=== PATIENT | male | born 1965 | race Caucasian/White ===

== ENCOUNTER 2019-04-02 10:03 | Day surgery (SDC) | payer BC ==
[2019-04-02] MEDS ORDERED: LIDOCAINE 2% MDV (20MG/ML) 20ML VIAL IV ONE (10:04)
[2019-04-02] MEDS ORDERED: FENTANYL PF 100MCG/2ML VIAL IV ONE (10:04)
[2019-04-02] MEDS ORDERED: PROPOFOL 10 MG/ML VIAL IV ONE (10:04)
--- NOTE | 2019-04-03 11:00 | Operative Note ---
OPERATION: ESOPHAGOGASTRODUODENOSCOPY with multiple biopsies. INDICATION: Recurring dysphagia. The patient reports a long-standing history of pyrosis in the past which clinically improved after significant elective weight loss. He experiences dysphagia intermittently now to dry solid foods pointing to the lower chest region. He denies any liquid dysphagia. He denies any oropharyngeal dysphagia. He denies pyrosis currently. Upper endoscopy is performed at this time for further evaluation. ANESTHESIA: Intravenous sedation was administered by the department of anesthesiology and included Diprivan titrated to effect. PROCEDURE: Following informed consent from this alert individual, including a discussion of the risks and benefits of the procedure and an opportunity for the patient to ask questions, the patient was in the left lateral decubitus position. The Olympus [id number] video endoscope was inserted into the esophagus without resistance. The proximal esophagus had a normal appearance with normal folds and distensibility. The mid esophagus likewise was free from changes. The distal esophageal segment demonstrated a 1.5 cm ulceration extending from the squamocolumnar junction proximally with edema and erythema circumferentially at the GE junction as well. Biopsies were taken. There was a small 2 cm hiatal hernia encountered which was free from mucosal changes. The subdiaphragmatic stomach was then entered. The proximal stomach was endoscopically unremarkable; however, the antrum of the stomach demonstrated linear streak erythema. The pylorus was patent. The duodenal bulb, sweep, and descending duodenum were then examined in a serial fashion and there were focal areas of duodenitis predominantly in the duodenal bulb. The second portion of the duodenum was normal. The endoscope was then drawn back into the body of the stomach where retroflexion accomplished following air insufflation again revealed a small hiatal hernia. The endoscope was then straightened. Biopsies were taken from the antrum of the stomach and from the proximal stomach as well. A second set of biopsies was taken from the area of ulceration as mentioned above. The endoscope was then withdrawn back through a normal mid and proximal esophagus and removed from the patient. He tolerated the procedure well and was returned to the recovery area in stable condition. IMPRESSION: 1. A 1.5 cm distal esophageal ulceration. Biopsies taken with esophagitis at the GE junction and a 2 cm hiatal hernia noted. 2. Linear antral gastritis. Gastric biopsies taken. 3. Mild duodenitis. RECOMMENDATION: Further recommendations will be forthcoming pending results of pathology obtained today. The patient will be started on omeprazole 20 mg twice daily and be arranged to have a recheck endoscopy in 8-10 weeks to assess healing and also perhaps for esophageal dilatation, as the tissue today was extremely friable and ulcerated. Followup will also be with primary care, Vanita Gallego. As always, thank you for allowing me to participate in the care of your patient. VICTOR HUGO
== END 2019-04-02 13:05 | disposition home or self-care (01) ==
LOC: HOP 10:03
PROVIDERS: ATTEND Internal Medicine Gastroenterology
DX: R13.10 Dysphagia, unspecified (principal); Z87.19 Personal history of other diseases of the digestive system; K22.10 Ulcer of esophagus without bleeding; K44.9 Diaphragmatic hernia without obstruction or gangrene; K29.70 Gastritis, unspecified, without bleeding; K29.80 Duodenitis without bleeding; E03.9 Hypothyroidism, unspecified
CPT/HCPCS: 43239; 00731; J3010

== ENCOUNTER 2019-07-16 08:15 | Day surgery (SDC) | payer BC ==
[2019-07-16] MEDS ORDERED: PROPOFOL 10 MG/ML VIAL IV ONE (08:16)
[2019-07-16] MEDS ORDERED: LIDOCAINE 2% MDV (20MG/ML) 20ML VIAL IV ONE (08:16)
--- NOTE | 2019-07-18 10:10 | Operative Note ---
OPERATION: ESOPHAGOGASTRODUODENOSCOPY with biopsy. INDICATION: Recently discovered distal esophageal ulceration with marked edema and erythema and friability at the time of the previous endoscopy approximately 2 months ago. He returns at this time after treatment to assess healing. Clinically, he is much improved. He was no longer suffering with dysphagia. He does report that there are times he forgets to take his medication. ANESTHESIA: Intravenous sedation was administered by the department of anesthesiology and included Diprivan titrated to effect. PROCEDURE: Following informed consent from this alert individual, including a discussion of the risks and benefits of the procedure and an opportunity for the patient to ask questions, the patient was in the left lateral decubitus position. The Olympus [id number] video endoscope was inserted into the esophagus without resistance. The proximal esophagus had a normal appearance with normal folds and distensibility. The mid esophagus likewise was free from changes. The distal esophageal segment demonstrated erythema with a slightly irregular Z line. The previously noted esophageal ulceration had healed. There was still a small 1.5 to 2 cm hiatal hernia noted which was free from mucosal changes. The stomach was entered and found to be unremarkable. The pylorus was patent. The duodenal bulb, sweep and descending duodenum were examined in a serial fashion and found to be normal as well. The instrument was then withdrawn back into the body of the stomach where retroflexion accomplished following air insufflation again revealed a small hiatal hernia. No other changes were noted. The previously noted inflammation in the stomach and duodenum had healed. The instrument was then withdrawn back to the distal esophagus where biopsies were taken from the distal esophageal segment. After biopsy, endoscope was then withdrawn back through a normal mid and proximal esophagus and removed from the patient. The patient tolerated the procedure well and was returned to the recovery area in stable condition. IMPRESSION: 1. Healed distal esophageal ulceration with residual esophagitis noted. Biopsies taken. 2. Small hiatal hernia. RECOMMENDATION: The patient will continue on acid blockade therapy. I will have him follow up in the GI clinic in the next few months or so. Further recommendations may be forthcoming pending his progress and biopsy reports. Followup will also be with Vanita Gallego. As always, thank you for allowing me to participate in the care of your patient. VICTOR HUGO
== END 2019-07-16 10:30 | disposition home or self-care (01) ==
LOC: HOP 08:15
PROVIDERS: ATTEND Internal Medicine Gastroenterology
DX: K22.10 Ulcer of esophagus without bleeding (principal); K20.0 Eosinophilic esophagitis; K31.89 Other diseases of stomach and duodenum; K44.9 Diaphragmatic hernia without obstruction or gangrene; K21.9 Gastro-esophageal reflux disease without esophagitis; E03.9 Hypothyroidism, unspecified